=== PATIENT | female | born 1995 | race Caucasian/White ===

== ENCOUNTER 2021-08-01 19:43 | Inpatient (IN) | payer OTHER ==
[2021-08-01 20:11] LABS: AMPHETAMINES NEGATIVE (NEGATIVE); BARBITURATES NEGATIVE (NEGATIVE); BILIRUBIN NEGATIVE (NEGATIVE); BLOOD TRACE-INTACT Ery/uL (NEGATIVE); CLARITY CLEAR (CLEAR); COLOR YELLOW (YELLOW); ECSTASY (MDMA) NEGATIVE (NEGATIVE); GLUCOSE (U) NORMAL (NORMAL); LEUKOCYTES TRACE Leu/uL (NEGATIVE); MARIJUANA (THC) NEGATIVE (NEGATIVE); METHADONE NEGATIVE (NEGATIVE); NITRITE NEGATIVE (NEGATIVE); OPIATES NEGATIVE (NEGATIVE); OXYCODONE NEGATIVE (NEGATIVE); PROTEIN NEGATIVE (NEGATIVE); SPECIFIC GRAVITY 1.025 (1.001-1.030); UROBILINOGEN 0.2 mg/dL (0.2-1.0)
[2021-08-01 20:17] LABS: BACTERIA 1+; MUCOUS TRACE
[2021-08-01 20:48] LABS: HCT 33.5 % (37.0-47.0); MCH 28.6 pg (25.0-31.0); MCHC 32.8 g/dL (32.0-36.0); MCV 87.2 fL (78.0-100.0); MPV 10.3 fL (6.0-9.5); RBC 3.84 M/uL (4.20-5.40); RDW 12.9 % (11.5-14.0); WBC 16.1 K/uL (4.0-10.5)
[2021-08-02 07:02] LABS: HGB 10.6 g/dl (12.5-16.0); MCH 28.8 pg (25.0-31.0); MCHC 33.1 g/dL (32.0-36.0); MPV 10.3 fL (6.0-9.5); RBC 3.68 M/uL (4.20-5.40); RDW 13.1 % (11.5-14.0); WBC 15.8 K/uL (4.0-10.5)
== END 2021-08-03 19:52 | disposition home or self-care (01) | DRG 806 ==
LOC: FOD 19:43 → FOB 19:44 → FOD 20:41 → FOB 20:42
PROVIDERS: ADMIT Obstetrics & Gynecology
PROC: 10E0XZZ Delivery of Products of Conception, External Approach (ICD-10-PCS; principal; 2021-08-01)
DX: O99.02 Anemia complicating childbirth (principal); D62 Acute posthemorrhagic anemia; Z37.0 Single live birth; Z3A.39 39 weeks gestation of pregnancy; Z20.822 Contact with and (suspected) exposure to COVID-19; O99.52 Diseases of the respiratory system complicating childbirth; J45.909 Unspecified asthma, uncomplicated
CPT/HCPCS: 36415; 80305; 81001; 86850; 86900; 86901; U0002